=== PATIENT | male | born 1935 | race Caucasian/White ===

== ENCOUNTER → 2017-01-03 | Outpatient (CLI) | payer OTHER ==
[~2017-01-03] MED LIST: REGADENOSON 0.4 MG/5 ML SYR IVP ONE
--- NOTE | 2017-01-03 22:14 | CPR ---
[f rep st] NONINVASIVE CARDIAC PROCEDURE REPORT DATE OF PROCEDURE: 01/03/2017 LEXISCAN NUCLEAR STRESS TEST ORDERING PROVIDER: Marbin Whiting, nurse practitioner. REASON FOR TEST: 1. Chest pain. 2. History of myocardial infarction. 3. 3 stents placed in 2007. DESCRIPTION: Resting EKG shows a sinus rhythm, right bundle branch block. Blood pressure 128/80, heart rate 67, oxygen saturation 89%. He is asymptomatic. Stress Portion: Lexiscan was injected rapidly, followed by saline flush. Cardiolite was then injected, followed by saline flush by protocol. He did develop flushing, shortness of breath, chest discomfort. His legs felt different. Blood pressure peaked at 122/70. Peak heart rate 83, oxygen saturation 98%. There were no significant EKG changes with the injection. RECOVERY: He did recover with the help of caffeine. His blood pressure at recovery 124/72, heart rate 77 and regular, oxygen saturation 98%. It did take 4 minutes for the symptoms to subside. He is stable post testing. At this time , he currently is stable for nuclear imaging. /[id number]/MODL MTDD
== END ==
LOC: FIMAGING 11:55
PROVIDERS: ATTEND Nurse Practitioner Family
PROC: C22G1ZZ Tomographic (Tomo) Nuclear Medicine Imaging of Myocardium using Technetium 99m (Tc-99m) (ICD-10-PCS; principal; 2017-01-03)
DX: R07.9 Chest pain, unspecified (principal); I25.10 Atherosclerotic heart disease of native coronary artery without angina pectoris; I25.2 Old myocardial infarction; Z95.5 Presence of coronary angioplasty implant and graft
CPT/HCPCS: 78452; 93017; A9500; J2785

== ENCOUNTER → 2017-01-08 | Outpatient (CLI) | payer OTHER | LOC: BHFA 11:00 | PROVIDERS: ATTEND Internal Medicine Cardiovascular Disease | DX: R00.2 Palpitations (principal); I25.10 Atherosclerotic heart disease of native coronary artery without angina pectoris ==

== ENCOUNTER 2017-03-13 11:49 | Day surgery (SDC) | payer OTHER ==
[2017-03-13] MEDS ORDERED: diphenhydrAMINE 25 MG CAP PO ONE (11:54)
[2017-03-13] MEDS ORDERED: FAMOTIDINE 20 MG TAB PO ONE (11:54)
[2017-03-13] MEDS ORDERED: ASPIRIN EC 325 MG TAB PO ONE (11:54)
[2017-03-13] MEDS ORDERED: NS 1,000 ML IV ONE (11:54)
--- NOTE | 2017-03-13 12:31 | CPEKG ---
Heart Rate: 60 RR Interval: 1000 P-R Interval: 200 QRSD Interval: 150 QT Interval: 480 QTC Interval: 480 P [place]: 22 QRS [place]: 63 T Wave [place]: -1 EKG Severity - ABNORMAL ECG - EKG Impression: SINUS RHYTHM EKG Impression: PROBABLE LEFT ATRIAL ABNORMALITY EKG Impression: RIGHT BUNDLE BRANCH BLOCK EKG Impression: SIMILAR ECG NOTED IN 14-DEC-12 Electronically Signed By: Patrick Ann 16-Mar-2017 10:44:45
[2017-03-13 12:32] LABS: PLATELET COUNT 154 10^3/uL (150-400)
[2017-03-13 12:47] LABS: INR 0.94 (0.83-1.16); PROTIME(PATIENT) 12.8 SEC (12.0-15.0)
[2017-03-13] MEDS ORDERED: LIDOCAINE 1% 300 MG/30 ML SDV ONE (13:20)
[2017-03-13] MEDS ORDERED: HEPARIN 10,000 UNIT/10 ML MDV (1,000 UNIT/ML) ONE (13:21)
[2017-03-13] MEDS ORDERED: VERAPAMIL 5 MG/2 ML VIAL ONE (13:21)
[2017-03-13] MEDS ORDERED: MIDAZOLAM 2 MG/2 ML VIAL ONE (13:21)
[2017-03-13] MEDS ORDERED: fentaNYL 100 MCG/2 ML INJ ONE (13:21)
[2017-03-13] MEDS ORDERED: IOPAMIDOL (ISOVUE-370) 150 ML BTL IV ONE (13:21)
--- NOTE | 2017-03-13 13:28 | PDHPUP ---
History & Physical Update H&P update statement: This history and physical update is based on an assessment of the patient which was completed after admission or registration (within 24 hours), but prior to the surgery/procedure. H&P update: H&P reviewed & patient examined, no change in patient's condition since H&P completed
--- NOTE | 2017-03-13 13:29 | PDPROPOC ---
Sedation Plan of Care Sedation Plan of Care: vital signs stable, mental status noted, patient educated of risks, benefits, alternatives, patient can tolerate sedation ASA Classification: ASA 2 Planned drugs: fentanyl, midazolam Mallampati Score: Class 2 Mallampati Reference Image: Patient passed 3-3-2 rule?: Yes
[2017-03-13] MEDS ORDERED: ONDANSETRON 4 MG/2 ML VIAL IVP PRN (14:16)
[2017-03-13] MEDS ORDERED: NITROGLYCERIN 0.4 MG BTL SL PRN (14:16)
[2017-03-13] MEDS ORDERED: ATROPINE SULFATE 1 MG/10 ML SYR IVP PRN (14:16)
[2017-03-13] MEDS ORDERED: HYDROCODONE/APAP 5/325 TAB PO PRN (14:16)
--- NOTE | 2017-03-13 14:26 | PDDXCAT ---
Diagnostic Cath Note - . Date: 03/13/17 [place] Tender: Arron Indication: other (CAD with h/o LAD PCI and continued chest pain despite reassuring noninvasive evaluation.) - Procedure Access: right wrist Procedure: left heart catheterization, coronary angiography, left ventriculogram - Materials Left Heart Cath size: 5F Left Heart Cath materials: other ([employer] and [employer]) - Findings-Left Heart Catheterization LM: Normal. LAD: Flouroscopy reveals the presence of a previously stented segment in the proximal LAD. Angiography feels that the stent is widely patent. The remainder of the LAD and its diagonal branches exhibit mild irregularities. LCX: Diffuse mild to moderate irregularities. RCA: Diffuse mild to moderate irregularities; mid-RCA with a 50% stenosis. Ramus: The ramus intermedius bifurcates proximally. Each limb of the ramus has moderate disease up to 50-60% in its proximal portion. LVEF: 60% Wall motion: Normal. Complications: None Estimated blood loss: <50ml Closure method: TR Band Assessment: 1) Normal LV systolic function. 2) CAD as described above without flow limiting lesions.
== END 2017-03-13 18:26 | disposition home or self-care (01) ==
LOC: FCATH 11:49
PROVIDERS: ATTEND Internal Medicine Interventional Cardiology
PROC: B2151ZZ Fluoroscopy of Left Heart using Low Osmolar Contrast (ICD-10-PCS; principal; 2017-03-13)
PROC: 4A023N7 Measurement of Cardiac Sampling and Pressure, Left Heart, Percutaneous Approach (ICD-10-PCS; principal; 2017-03-13)
PROC: B2111ZZ Fluoroscopy of Multiple Coronary Arteries using Low Osmolar Contrast (ICD-10-PCS; principal; 2017-03-13)
DX: I25.10 Atherosclerotic heart disease of native coronary artery without angina pectoris (principal); R07.89 Other chest pain; I25.2 Old myocardial infarction; E78.5 Hyperlipidemia, unspecified; I45.10 Unspecified right bundle-branch block; I10 Essential (primary) hypertension; G20 Parkinson's disease; G47.33 Obstructive sleep apnea (adult) (pediatric); F32.9 Major depressive disorder, single episode, unspecified; Z91.81 History of falling; Z90.49 Acquired absence of other specified parts of digestive tract; Z85.038 Personal history of other malignant neoplasm of large intestine; Z95.5 Presence of coronary angioplasty implant and graft
CPT/HCPCS: 93005; 93458; C1769; J1644; J2250; J3010; Q9967

== ENCOUNTER → 2017-06-19 | Outpatient (CLI) | payer OTHER | LOC: BHFA 13:30 | PROVIDERS: ATTEND Internal Medicine Cardiovascular Disease | DX: I25.10 Atherosclerotic heart disease of native coronary artery without angina pectoris (principal) | CPT/HCPCS: 78452; 93017; A9500; J2785 ==

== ENCOUNTER → 2017-09-21 | Outpatient (CLI) | payer OTHER | LOC: FCPNEURO 20:00 | PROVIDERS: ATTEND Psychiatry & Neurology Sleep Medicine | DX: G47.33 Obstructive sleep apnea (adult) (pediatric) (principal); G47.34 Idiopathic sleep related nonobstructive alveolar hypoventilation; G47.61 Periodic limb movement disorder ==